=== PATIENT | male | born 1985 | race Two or more races ===

== ENCOUNTER 2017-04-06 05:07 | Emergency (ER) | payer OTHER ==
--- NOTE | ~2017-04-06 | CT4 ---
[facility] A Service of [facility] RADIOLOGY TEXT RESULTS PATIENT: SUMIT ALVARADO LOCATION: [facility] : 81 UNIT #: [id number] AGE: [address]: Susan Fan APRN SEX: M ORDER DR: [id number] [facility] [address] [place], [place] [address] [id number] E MR#: [id number] Acc #: [id number] NAME: SUMIT ALVARADO : 1985 SEX: M STUDY DATE/TIME: 04/06/2017 7:35 UNIT: [facility] ROOM: STUDY DESCRIPTION: CT Abd and Pelv Wo Cont Attending Physician: Susan Fan A.P.R.N. Ordering Physician: Divya Samaniego A.P.R.N. Primary Care Physician: Ranjana Dixon M.D. MEDICAL IMAGING REPORT This report is preliminary unless electronic signature is present EXAM CT abdomen and pelvis, 04/06/2017 HISTORY Left upper quadrant pain starting last night. Complains of nausea and vomiting. TECHNIQUE This CT exam was performed with one or more of the following radiation dose reduction techniques: automatic exposure control, adjustment of mA and/or kV according to patient size, and iterative reconstruction. FINDINGS CT abdomen and pelvis performed without administration of oral or intravenous contrast. No comparison studies. The lung bases show 3.0-4.0 mm noncalcified nodule anterior right middle lobe. Dependent atelectasis lung bases. Inferior heart and pericardium unremarkable. The gallbladder, liver, spleen, small accessory spleen, pancreas, adrenal glands, right kidney and ureter unremarkable. Urinary bladder unremarkable. Left kidney shows mild hydronephrosis and proximal hydroureter to level mid to level of mid left ureteral calculus measuring 3.0 mm. Located at the L3 vertebral body level. Mild proximal periureteral inflammatory change. No significant left perinephric inflammatory change and no fluid collection. Remainder of left ureter decompressed. CT PELVIS: No inguinal adenopathy. No fluid collections in the pelvis. No pelvic or retroperitoneal adenopathy. Visualized esophagus, stomach, small bowel, appendix, colon remarkable. Unopacified vascular structures unremarkable. Bony structures show no acute abnormality. Posterior disc osteophyte complex L5-S1 slightly more pronounced in the right paracentral region. No spinal stenosis but the disc osteophyte complex appears to abut the right descending S1 nerve root sleeve with narrowing of the right STS. [facility] A Service of [facility] RADIOLOGY TEXT RESULTS PATIENT: SUMIT ALVARADO [id number] 81 UNIT #: [id number] AGE: [address]: Susan Fan [employer] SEX: M ORDER DR: lateral recess. Correlate with any right S1 dermatomal symptoms. IMPRESSION 1. 3.0 mm left ureteral calculus in the mid left ureter at L3 vertebral body level resulting in mild left hydronephrosis and proximal hydroureter and minimal proximal left periureteral inflammatory change. No other renal, ureteral or bladder calculi. 2. Gallbladder, pancreas, appendix normal. 3. No other acute abnormalities are seen in the abdomen or pelvis. 4. 3.0-4.0 mm noncalcified pulmonary nodule anterior right middle lobe. In absence of risk factors such as history of tobacco usage, no additional followup recommended. If the patient does have risk factors for pulmonary malignancy, 12-month CT followup recommended. 5. Posterior disc osteophyte complex slightly eccentric in the right paracentral region at the L5-S1 level. No spinal stenosis. Narrowing of the right lateral recess. The disc osteophyte complex abuts descending right S1 nerve root sleeve. Correlate with any right S1 dermatomal symptoms. Dictated by... Sammy York M.D. THIS IS AN ELECTRONICALLY VERIFIED REPORT Sammy York M.D. at 04/06/2017 5:16 PM Ruthie TD: 04/06/2017 11:10 JOB #: [id number] MEDICAL IMAGING REPORT Page 1 of 1 COPY
[2017-04-06 06:45] LABS: URINE APPEARANCE TURBID; URINE BLOOD 3+ (NEG); URINE COLOR ORANGE; URINE GLUCOSE NEG (NEG); URINE KETONE NEG (NEG); URINE LEUKOCYTE ESTERASE 1+ (NEG); URINE NITRATE NEG (NEG); URINE PROTEIN 2+ (NEG); URINE SPECIFIC GRAVITY 1.033 (1.003-1.035); URINE UROBILINOGEN 0.2 MG/DL (NEG)
[2017-04-06 06:48] LABS: CULTURE INDICATED? YES; URBCS1 AUWI INNUM /[HPF] (0-2); URINE BACTERIA AUWI NEG (NEGATIVE); URINE SQUAMOUS EPITHELIAL CELL NONE SEEN /[HPF]
[2017-04-06 06:53] LABS: URINE BILIRUBIN NEG (NEG)
[2017-04-06 06:59] LABS: URINE SOURCE CLEAN CATCH
[2017-04-06 07:12] LABS: BASOPHIL# 0.1 X10e3 (0-0.3); BASOPHIL% 0.6 % (0-2.5); EOSINOPHIL# 0.3 X10e3 (0-0.7); EOSINOPHIL% 2.2 % (0.0-7.0); HEMOGLOBIN 15.2 gm/dL (13.0-16.0); LYMPHOCYTE# 2.1 X10e3 (1.0-3.5); LYMPHOCYTE% 18.1 % (17.0-45.0); MEAN CELL VOLUME 83.8 FL (83-96); MEAN CORPUSCULAR HEMOGLOBIN 27.8 PG (28-34); MEAN CORPUSCULAR HGB CONC 33.1 g/dL (30-36); MEAN PLATELET VOLUME 9.6 FL (6.5-11.5); MONOCYTE# 0.8 X10e3 (0-1.0); MONOCYTE% 7.1 % (3.0-12.0); NEUTROPHIL# 8.5 X10e3 (1.5-7.1); PLATELET COUNT 225 X10e3 (140-420); RED BLOOD COUNT 5.48 X10e (3.90-5.60); RED CELL DISTRIBUTION WIDTH 12.9 % (11.0-15.5); WHITE BLOOD COUNT 11.8 X10e3 (4.0-10.5)
[2017-04-06 07:14] LABS: DIFF IND NO
[2017-04-06 07:37] LABS: ALBUMIN SERUM 4.5 g/dL (3.5-5.0); BILIRUBIN,TOTAL 2.2 mg/dL (0.2-2.0); BUN/CREATININE RATIO 21.11; CALCIUM SERUM 8.6 mg/dL (8.4-10.2); CREATININE SERUM 0.9 mg/dL (0.6-1.4); GLOM FILT RATE Estimated 129.6 mL/min (>60); POTASSIUM 3.5 mmol/L (3.5-5.1); PROTEIN TOTAL SERUM 7.5 g/dL (6.0-8.3)
[2017-05-12] MEDS ORDERED: PAIN MED (11:42)
== END 2017-04-06 10:00 | disposition home or self-care (01) ==
LOC: CED 05:07
PROVIDERS: Nurse Practitioner
DX: N13.2 Hydronephrosis with renal and ureteral calculous obstruction (principal)
CPT/HCPCS: 74176; 80053; 81003; 85025; 87086; 96361; 96372; 96374; 99284; J0500; J1885

== ENCOUNTER 2017-05-07 11:01 | Emergency (ER) | payer OTHER ==
--- NOTE | ~2017-05-07 | CT4 ---
[facility] A Service of [facility] RADIOLOGY TEXT RESULTS PATIENT: SUMIT ALVARADO LOCATION: [facility] : 81 UNIT #: [id number] AGE: [address]: Rene Rosario MD SEX: M ORDER DR: [id number] [facility] [address] [place], [place] [address] [id number] E MR#: [id number] Acc #: [id number] NAME: SUMIT ALVARADO : 1985 SEX: M STUDY DATE/TIME: 05/07/2017 13:53 UNIT: [facility] ROOM: STUDY DESCRIPTION: CT Abd and Pelv Wo Cont Attending Physician: Jesus Rosario M.D. Ordering Physician: [facility] Primary Care Physician: Ranjana Dixon M.D. MEDICAL IMAGING REPORT This report is preliminary unless electronic signature is present EXAM CT abdomen and pelvis, noncontrast, kidney stone protocol, 05/07/2017 HISTORY 31-year-old male in the ED complaining of 5-day history of left flank pain. Lithotripsy procedure [address] examination of the abdomen and pelvis without oral or IV contrast using kidney stone protocol. This CT exam was performed with one or more of the following radiation dose reduction techniques: automatic exposure control, adjustment of mA and/or kV according to patient size, and iterative reconstruction. FINDINGS ABDOMEN: The previous study of 04/06/2017 showed a 3 mm calculus in the proximal left ureter with mild left hydronephrosis. The current study shows a 3 mm calculus in the left distal ureter just above the UVJ, but there is no dilatation of the left ureter or left renal collecting system at this time. No additional renal or urinary tract stone material is seen. The bladder is nondistended. The liver, pancreas and spleen are normal in size and appearance. Nondistended gallbladder. No bile duct dilatation. Small bowel and colon are normal in caliber and appearance, as imaged. Normal appendix. PELVIS: Bladder, prostate and rectum are unremarkable. No inguinal hernia or additional abdominal wall abnormality. Lung base images show no active disease in the lower chest. IMPRESSION 1. 3 mm calculus in the left distal ureter just above the UVJ. This may STS. [facility] A Service of [facility] RADIOLOGY TEXT RESULTS PATIENT: SUMIT ALVARADO LOCATION: [facility] : 81 UNIT #: [id number] AGE: [address]: Rene Rosario MD SEX: M ORDER DR: represent the same 3 mm calculus previously seen in the proximal left ureter on 04/06/2017 or a post lithotripsy stone fragment. There is no left side hydronephrosis today. No additional renal or urinary tract stone material is seen. 2. The remainder of the examination is negative. Normal appendix. Dictated by... Gabo Love M.D. THIS IS AN ELECTRONICALLY VERIFIED REPORT Gabo Love M.D. at 05/07/2017 10:02 PM Lolly TD: 05/07/2017 16:55 JOB #: [id number] MEDICAL IMAGING REPORT Page 1 of 1 COPY
[2017-05-07 13:02] LABS: URINE SOURCE CLEAN CATCH
[2017-05-07 13:20] LABS: URINE APPEARANCE CLEAR; URINE BILIRUBIN NEG (NEG); URINE BLOOD 2+ (NEG); URINE COLOR YELLOW; URINE GLUCOSE NEG (NEG); URINE KETONE NEG (NEG); URINE LEUKOCYTE ESTERASE NEG (NEG); URINE NITRATE NEG (NEG); URINE PROTEIN NEG (NEG); URINE SPECIFIC GRAVITY 1.009 (1.003-1.035); URINE UROBILINOGEN 0.2 MG/DL (NEG)
[2017-05-07 13:23] LABS: URINE BACTERIA AUWI NEG (NEGATIVE); URINE SQUAMOUS EPITHELIAL CELL NONE SEEN /[HPF]; UWBCS1 AUWI 0-2 (0-5)
[2017-05-07 13:25] LABS: CULTURE INDICATED? NO
[2017-05-07 13:25] LABS: BASOPHIL# 0.1 X10e3 (0-0.3); BASOPHIL% 0.6 % (0-2.5); EOSINOPHIL# 0.2 X10e3 (0-0.7); EOSINOPHIL% 2.4 % (0.0-7.0); HEMATOCRIT 48.4 % (38.0-50.0); HEMOGLOBIN 16.2 gm/dL (13.0-16.0); LYMPHOCYTE# 1.5 X10e3 (1.0-3.5); LYMPHOCYTE% 18.2 % (17.0-45.0); MEAN CELL VOLUME 84.4 FL (83-96); MEAN CORPUSCULAR HEMOGLOBIN 28.2 PG (28-34); MEAN CORPUSCULAR HGB CONC 33.5 g/dL (30-36); MEAN PLATELET VOLUME 9.6 FL (6.5-11.5); MONOCYTE# 0.4 X10e3 (0-1.0); MONOCYTE% 5.1 % (3.0-12.0); NEUTROPHIL% 73.7 % (40-75); PLATELET COUNT 260 X10e3 (140-420); RED BLOOD COUNT 5.73 X10e (3.90-5.60); RED CELL DISTRIBUTION WIDTH 12.5 % (11.0-15.5); WHITE BLOOD COUNT 8.2 X10e3 (4.0-10.5)
[2017-05-07 13:38] LABS: DIFF IND NO
[2017-05-07 13:56] LABS: ALBUMIN SERUM 4.7 g/dL (3.5-5.0); BILIRUBIN, DIRECT 0.2 mg/dL (0.0-0.2); BILIRUBIN,INDIRECT 1.3 mg/dL (0.0-0.9); BILIRUBIN,TOTAL 1.5 mg/dL (0.2-2.0); BUN/CREATININE RATIO 7.27; CALCIUM SERUM 9.1 mg/dL (8.4-10.2); CREATININE SERUM 1.1 mg/dL (0.6-1.4); GLOM FILT RATE Estimated 101.7 mL/min (>60); POTASSIUM 4.2 mmol/L (3.5-5.1); PROTEIN TOTAL SERUM 8.1 g/dL (6.0-8.3)
[2017-05-12] MEDS ORDERED: PAIN MED (11:42)
== END 2017-05-07 15:25 | disposition home or self-care (01) ==
LOC: CED 11:01
PROVIDERS: Emergency Medicine
DX: N20.1 Calculus of ureter (principal); Z87.442 Personal history of urinary calculi
CPT/HCPCS: 36415; 74176; 80048; 80076; 81003; 83690; 85025; 99284

== ENCOUNTER → 2017-05-12 | Day surgery (SDC) | payer OTHER ==
[~2017-05-12] MED LIST: PAIN MED
--- NOTE | ~2017-05-12 | OR ---
Unit #: [id number] #: [id number] Patient: SUMIT ALVARADO [id number] [address] [address] [id number] O MR#: [id number] NAME: SUMIT ALVARADO ROOM: Date of Procedure: 05/12/2017 Admission Date: 05/12/2017 Surgeon: Valerio Arriaza M.D. : 1985 Attending Physician: Valerio Arriaza M.D. Primary Care Physician: Ranjana Dixon M.D. OPERATIVE REPORT PREOPERATIVE DIAGNOSES Left ureteral stone, renal colic. POSTOPERATIVE DIAGNOSES Left ureteral stone, renal colic. PROCEDURES PERFORMED Cystoscopy, left ureteroscopy, basket extraction, stent placement with tether. ANESTHESIA General. DESCRIPTION OF PROCEDURE After informed consent, he was taken to the operating room, placed under general anesthesia, positioned in lithotomy. His penis and perineum were prepped and draped in usual sterile fashion. Cystoscopy was performed showing a normal urethra and bladder. There were no tumors, no stones. On fluoroscopy, there was no visible calcifications along the course of the ureter or the kidney. A Sensor wire was placed into the left ureter under fluoroscopic guidance. The ureteral dilating catheters were used to dilate the ureter. Rigid ureteroscopy was performed and the ureter was inspected. There was a stone in the distal ureter. It was about 3 mm. A basket was used and the stone was extracted without difficulty. A 5 x 24 stent was placed with the tether attached. There was good coil in the bladder and collecting system. The patient will be discharged home. Return to see me in a week for stent removal. He tolerated the procedure well. Dictated by... Lida Lee/mjl TD: 05/12/2017 16:53 JOB #: [id number] Unit #: [id number] #: [id number] Patient: SUMIT ALVARADO OPERATIVE REPORT Page 1 of 1 X Valerio Arriaza MD PROCEDURE OPERATIVE NOTE
== END | disposition home or self-care (01) ==
LOC: CSUR 10:41
PROVIDERS: Urology
DX: N20.1 Calculus of ureter (principal); N23 Unspecified renal colic; Z87.442 Personal history of urinary calculi
CPT/HCPCS: 82365; 88300; C2617; J0690; J1885; J2250; J2405; J3010

== ENCOUNTER → 2017-06-03 | Outpatient (CLI) | payer OTHER ==
--- NOTE | ~2017-06-03 | US77 ---
[facility] A Service of [facility] RADIOLOGY TEXT RESULTS PATIENT: SUMIT ALVARADO LOCATION: [facility] : 81 UNIT #: [id number] AGE: [address]: Valerio Arriaza MD SEX: M ORDER DR: [id number] [facility] [address] [place], [place] [address] [id number] O MR#: [id number] Acc #: [id number] NAME: SUMIT ALVARADO : 1985 SEX: M STUDY DATE/TIME: 06/03/2017 15:08 UNIT: [facility] ROOM: STUDY DESCRIPTION: US Kidney Bilateral Complete Attending Physician: Valerio Arriaza M.D. Referring Physician: Valerio Arriaza M.D. Ordering Physician: Valerio Arriaza M.D. Primary Care Physician: Sony Ramirez M.D. MEDICAL IMAGING REPORT This report is preliminary unless electronic signature is present EXAM Renal ultrasound complete, 06/03/2017 HISTORY Bilateral flank pain for 1 month and history of kidney stones. FINDINGS The right kidney measures 8.6 cm, while the left kidney measures 9.3 cm in longitudinal dimensions. There is no evidence of hydronephrosis or nephrolithiasis. No cystic or solid mass lesions were seen on either kidney and there is normal renal cortical echogenicity. Images of the bladder are normal. IMPRESSION 1. Negative renal ultrasound. 2. Images of the bladder are normal. Dictated by... Enzo Mcknight M.D. THIS IS AN ELECTRONICALLY VERIFIED REPORT Enzo Mcknight M.D. at 06/04/2017 7:19 AM KRT/david TD: 06/03/2017 23:15 JOB #: [id number] MEDICAL IMAGING REPORT Page 1 of 1 COPY
== END | disposition home or self-care (01) ==
LOC: CGUS 14:50
DX: N20.0 Calculus of kidney (principal)
CPT/HCPCS: 76770